=== PATIENT | male | born 1990 | race Caucasian/White ===

== ENCOUNTER 2018-05-16 15:14 | Emergency (ER) | END 2018-05-16 18:23 | disposition home or self-care (01) ==

== ENCOUNTER 2018-08-16 01:03 | Emergency (ER) | END 2018-08-16 04:07 | disposition home or self-care (01) ==

== ENCOUNTER 2019-02-13 21:56 | Emergency (ER) | payer MEDICAID ==
[~2019-02-13] VITALS: Ht 160 cm; Wt 96.8 kg
[~2019-02-13 21:56] MED LIST: ACET500C5 PO; BACTDS PO; CEPH-443 PO; CLIN300C10 PO; FAMO-96 PO; HYDR-762 PO; IBUP-1561 PO; ONDA4TAB14 PO; ONDA4TAB8 PO; RANI150T35 PO
[2019-02-13 22:06] VITALS: Ht 160 cm; Wt 96.8 kg
--- NOTE | 2019-02-14 02:42 | ERD ---
ER Documentation Chief Complaint Chief Complaint EPIGASTRIC PAIN, BURNING IN THROAT X'S 10 DAYS HPI Is a 28-year-old male comes in with complaints of cough congestion and body aches for the past 2-3 days. Cough is mildly productive with greenish sputum. He complains of chest wall pain when he coughs as well. Pain is reproducible to the touch and is nonradiating. Denies any sick contacts. Denies any other current issues. ROS All systems reviewed and are negative except as per history of present illness. Medications Home Meds Active Scripts Ibuprofen* (Motrin*) 400 Mg Tab, 400 MG PO Q6, #15 TAB Prov:ISHANPANCHITO Unger [employer] 07/06/17 Clindamycin Hcl* (Clindamycin Hcl*) 300 Mg Capsule, 300 MG PO QID for 7 Days, CAP Prov:CYNTHIA KELLOGG 08/06/15 Allergies Allergies: Uncoded Allergies: SOME ANTIBX (Allergy, Unknown, 08/01/15) PMhx/Soc Medical and Surgical Hx: pt denies Medical Hx, pt denies Surgical Hx Hx Alcohol Use: No Hx Substance Use: No Hx Tobacco Use: No Smoking Status: Never smoker Physical Exam Vitals Vital Signs Date Temp Pulse Resp B/P (MAP) Pulse Ox O2 O2 Flow FiO2 Time Delivery Rate 02/14/19 64 17 116/72 98 Room Air 00:33 (87) 02/13/19 98.0 71 18 118/68 98 22:06 (85) Physical Exam Const: No acute distress Head: Atraumatic Eyes: Normal Conjunctiva ENT: Normal External Ears, Nose and Mouth. Neck: Full range of motion. No meningismus. Resp: Scattered rhonchi noted bilaterally Cardio: Regular rate and rhythm, no murmurs. Reproducible chest wall pain across the mid anterior chest. No bony deformity. No flail chest. Abd: Soft, non tender, non distended. Normal bowel sounds Skin: No petechiae or rashes Back: No midline or flank tenderness Ext: No cyanosis, or edema Neur: Awake and alert Psych: Normal Mood and Affect Procedures/MDM Chest X-ray 1V Interpreted by me: Soft Tissue: No acute abnormalities Bones: No acute abnormalities Mediastinum/Cardiac Silhouette/Lungs: [No acute abnormalities] Medical decision making: Patient's respiratory status has stabilized while in the department and is appropriate for outpatient work up. Exam and work up not consistent w/ impending respiratory failure or cardiovascular collapse. The bulge is consistent with an acute bronchitis. Patient be discharged with albuterol, prednisone, Tessalon Perles. He is to return immediately for any worsening of symptomology. Return to be now 1 for any chest pain or increased shortness of breath. Otherwise follow-up with PCP. Departure Diagnosis: Primary Impression: Acute bronchitis Bronchitis organism: unspecified organism Qualified Codes: J20.9 - Acute bronchitis, unspecified Condition: ROAS Herrera Feb 14, 2019 02:42
[2019-02-14] MEDS ORDERED: AZIT250T PO (02:43)
[2019-02-14] MEDS ORDERED: PRED20TA PO (02:43)
[2019-02-14] MEDS ORDERED: ALBU18HF INHALATION (02:43)
[2019-02-14 03:35] VITALS: BP 115/72; PULSE 75; RESP 17
== END 2019-02-14 03:37 | disposition home or self-care (01) ==
LOC: E/R 21:56 → MERGE 21:56 → E/R 02-14 03:37
DX: J20.9 Acute bronchitis, unspecified (principal)
CPT/HCPCS: 71045; 93005; Z7502